=== PATIENT | male | born 1960 | race Caucasian/White ===

== ENCOUNTER 2019-04-08 15:01 | Inpatient (IN) ==
[2019-04-08 15:57] LABS: Bilirubin,Urine Negative (Negative); Blood,Urine Small (Negative); Clarity,Urine Clear (Clear); Color,Urine Yellow (Yellow); Glucose,Urine (UA) Normal (Normal); Ketones,Urine Negative (Negative); Leukocyte Esterase,Urine Small (Negative); Nitrite,Urine Positive (Negative); PH,Urine 6.5 pH Units (5.0-8.0); Protein,Urine Negative (Neg-Trace); Specific Gravity,Urine 1.015 (1.010-1.025); Urobilinogen,Urine Normal (Normal)
[2019-04-08 15:59] LABS: Bacteria,Urine Many per hpf (None-Few); Hyaline Casts,Urine None Seen per lpf (None-Few); RBC,Urine 15-30 per hpf (0-3); Squamous Epithelial Cell,Urine Moderate per lpf (None-Few)
[2019-04-08 16:04] LABS: Basophils % 0.4 %; Eosinophils # 0.1 K/mcL (0.0-0.6); Eosinophils % 1.5 %; Hematocrit 41.3 % (37.5-50.1); Hemoglobin 14.1 g/dL (12.9-16.9); Immature Granulocytes % 0.3 % (0-4); Lymphocytes % 21.8 %; Mean Corpuscular HGB Conc 34.1 g/dL (31.6-35.5); Mean Corpuscular Hemoglobin 30.5 pg (28.0-33.3); Mean Corpuscular Volume 89.4 fL (83.0-100.0); Mean Platelet Volume 10.7 fL (9.4-12.4); Monocytes # 0.9 K/mcL (0.0-1.3); Monocytes % 9.6 %; Neutrophils # 5.9 K/mcL (1.6-8.9); Platelet Count 231 K/mcL (140-400); Red Blood Count 4.62 M/mcL (4.19-5.50); Red Cell Distribution Width 14.2 % (11.5-14.5); Segmented Neutrophils % 66.4 %
[2019-04-08 16:04] LABS: Amphetamine Screen,Urine Negative ng/mL (Cutoff=1000); Barbiturate Screen,Urine Negative ng/mL (Cutoff=200); Benzodiazepines Screen,Urine Negative ng/mL (Cutoff=200); Cannabinoid Screen,Urine Negative ng/mL (Cutoff = 50); Cocaine Screen,Urine Negative ng/mL (Cutoff= 300); Opiate Screen,Urine Negative ng/mL (Cutoff=300); Phencyclidine Screen,Urine Negative ng/mL (Cutoff=25)
[2019-04-08 16:11] LABS: Acetaminophen < 10 mcg/mL (10-20); BUN/Creatinine Ratio 10 (6-26); Blood Urea Nitrogen 8 mg/dL (6-20); Calcium 9.1 mg/dL (8.6-10.3); Carbon Dioxide 27 mEq/L (23-29); Chloride 102 mEq/L (98-107); Ethanol < 10 mg/dL (Less than 10); Glucose 110 mg/dL (70-105); Osmolality,Calculated 279 (280-300); Potassium 3.7 mEq/L (3.5-5.1); Salicylate < 2.5 mg/dL (15.0-30.0); Sodium 135 mEq/L (136-145); eGFR For African Americans > 60 (> 60); eGFR For Non-African Americans > 60 (> 60)
[2019-04-08] MEDS ORDERED: Sulfamethoxazole/Trimeth DS 1 EACH TABLET PO STA (16:16)
[2019-04-08] MEDS ORDERED: Haloperidol Lactate 5 MG/ML VIAL IM PRN (17:48)
[2019-04-08] MEDS ORDERED: Acetaminophen 325 MG TABLET PO PRN (17:48)
[2019-04-08] MEDS ORDERED: MOM Conc 10 ML UD.LIQ PO PRN (17:48)
[2019-04-08] MEDS ORDERED: hydrOXYzine pamoate 25 MG CAPSULE PO PRN (17:48)
[2019-04-08] MEDS ORDERED: traZODone 50 MG TABLET PO PRN (17:48)
[2019-04-08] MEDS ORDERED: *HR* LORazepam 1 MG TABLET PO PRN (17:48)
[2019-04-08] MEDS ORDERED: *HR* LORazepam 2 MG/ML VIAL IM PRN (17:48)
[2019-04-08] MEDS ORDERED: Mag Hydrox/Al Hydrox/Simeth 30 ML UDC PO PRN (17:48)
[2019-04-08] MEDS ORDERED: RISPERIDONE MICROSPHERES 50 MG IM SCH (18:00)
[2019-04-08 20:35] LABS: Chlamydia Trachomatis DNA Ur NOT DETECTED (Not Detect)
[2019-04-08] MEDS ORDERED: risperiDONE 1 MG TABLET PO SCH (21:00)
[2019-04-08] MEDS: risperiDONE 1 MG TABLET PO SCH (21:49)
[2019-04-09] MEDS: risperiDONE 1 MG TABLET PO SCH ×2 (09:30→21:41)
[2019-04-09] MEDS ORDERED: RisperiDONE MICROSPHERES 25 MG/2 ML SYRINGE IM SCH (12:45)
[2019-04-10] MEDS: risperiDONE 1 MG TABLET PO SCH ×2 (08:29→21:29)
[2019-04-11] MEDS: risperiDONE 1 MG TABLET PO SCH (08:25)
[2019-04-11 09:35] VITALS: BP 139/81
== END 2019-04-11 10:42 | disposition home or self-care (01) | DRG 750 ==
LOC: EMEROOARM 15:01 → SUATTDRO 17:42 → 1ANU 17:42
PROVIDERS: ADMIT Psychiatry & Neurology Psychiatry; ATTEND Psychiatry & Neurology Psychiatry